=== PATIENT | female | born 2000 | race Caucasian/White ===

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

== ENCOUNTER 2018-10-31 09:49 | Emergency (ER) | END 2018-10-31 11:50 | disposition home or self-care (01) ==

== ENCOUNTER 2018-11-03 11:45 | Emergency (ER) | END 2018-11-03 13:20 | disposition home or self-care (01) ==

== ENCOUNTER 2019-06-04 23:21 | Emergency (ER) | payer MEDICAID, OTHER ==
[~2019-06-04] VITALS: Ht 152.4 cm; Wt 45.5 kg
[~2019-06-04 23:21] MED LIST changes: +ACET325T33 PO; +BACITUD TOP; +CEPH-443 PO; +DICY10CA40 PO; -DICY10CA60 PO; +FAMO-96 PO; +IBUP-1542 PO; +IBUP-1561 PO; +LORA1TAB PO; +TRAM50TA2 PO
[2019-06-05 00:03] VITALS: Ht 152.4 cm; Wt 45.5 kg
[2019-06-05] MEDS ORDERED: ACETAMINOPHEN 325 MG TAB PO ONE (01:30)
[2019-06-05] MEDS ORDERED: ACET325T33 PO (02:39)
[2019-06-05 02:50] VITALS: BP 120/75; PULSE 82; RESP 18
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
== END 2019-06-05 02:50 | disposition home or self-care (01) ==
LOC: FTE 23:21
DX: O9A.212 Injury, poisoning and certain other consequences of external causes complicating pregnancy, second trimester (principal); S39.91XA Unspecified injury of abdomen, initial encounter; Y04.2XXA Assault by strike against or bumped into by another person, initial encounter; Y92.9 Unspecified place or not applicable; Z3A.16 16 weeks gestation of pregnancy
CPT/HCPCS: 76805; Z7502; Z7610